=== PATIENT | female | born 1990 | race Caucasian/White ===

== ENCOUNTER → 2018-03-06 16:45 | Outpatient (REF) | payer OTHER, SELFPAY ==
--- NOTE | 2018-03-06 16:15 | PAPFT_PTH ---
PATIENT: DOUGIE GOLDBERG LOC: [facility] U#:[id number] AGE/SX: 35/F ROOM: RE03/06/[address]: Sara Marsh : 1990 BED: DIS: SPEC #: [id number] RECD: 03/07/18 12:54 STATUS: JENNIFER RESamantha #: [id number] ANNA: 03/06/18 16:[address]: Sara Marsh DEPT: [facility] Cytology RECD BY: Shira Jones Tissues: 1 - CX/ENDOCX FOR PAP SMEARS Procedures: PAP THIN PREP/[facility] Screening Comments: [id number]
== END ==
LOC: NCHCN 16:45
PROVIDERS: PCP Family Medicine; Visit Provider Family Medicine
DX: Z00.00 Encounter for general adult medical examination without abnormal findings (principal); Z12.4 Encounter for screening for malignant neoplasm of cervix
CPT/HCPCS: 88142